=== PATIENT | female | born 1990 | race Caucasian/White ===

== ENCOUNTER 2019-06-14 14:23 | Emergency (ER) | payer OTHER ==
[2019-06-14 14:30] VITALS: BP 114/52; PULSE 82; TEMP 98.2; BMI 26.5
--- NOTE | 2019-06-14 15:03 | PDOC ---
History of Present Illness - General Chief Complaint: Injury Stated Complaint: RT HAND INJURY Time Seen by Provider: 06/14/19 14:32 History Source: Patient Exam Limitations: No Limitations Past History - Travel Traveled outside of the country in the last 30 days: No Close contact w/someone who was outside of country & ill: No - Past Medical History Allergies/Adverse Reactions: Allergies Allergy/AdvReac Type Severity Reaction Status Date / Time No Known Allergies Allergy Verified 06/14/19 14:27 Home Medications: Ambulatory Orders Cephalexin Monohydrate [Keflex -] 500 mg PO BID #14 capsule 06/14/19 - Psycho Social/Smoking Cessation Hx Smoking History: Never smoked Information on smoking cessation initiated: No Hx Alcohol Use: No Drug/Substance Use Hx: No Review of Systems - Review of Systems Able to Perform ROS?: Yes Comments:: 06/14/19 14:54 CONSTITUTIONAL: Absent: fever, chills, diaphoresis, generalized weakness, malaise, loss of appetite HEENT: Absent: rhinorrhea, nasal congestion, throat pain, throat swelling, difficulty swallowing, mouth swelling, ear pain, eye pain, visual Changes MUSCULOSKELETAL: Absent: myalgia, arthralgia, joint swelling SKIN: Present: R 4th nail injury Absent: rash, itching, pallor NEUROLOGIC: Absent: headache, focal weakness or paresthesias, dizziness, unsteady gait, seizure, mental status changes, bladder or bowel incontinence PSYCHIATRIC: Absent: anxiety, depression, suicidal or homicidal ideation, hallucinations. Is the patient limited Divehi proficient: No *Physical Exam - Vital Signs Last Vital Signs Temp Pulse Resp BP Pulse Ox 98.2 F 82 18 114/52 L 98 06/14/19 14:27 06/14/19 14:27 06/14/19 14:27 06/14/19 14:27 06/14/19 14:27 - Physical Exam 06/14/19 14:54 GENERAL: The patient is awake, alert, and fully oriented, in no acute distress. HEAD: Normal with no signs of trauma. EYES: Pupils equal, round and reactive to light, extraocular movements intact, sclera anicteric, conjunctiva clear. EXTREMITIES: Normal range of motion, no edema. NEUROLOGICAL: Normal speech, normal gait. PSYCH: Normal mood, normal affect. SKIN: The lateral aspect of the 4th ring finger nail is lifted from the bed. No bleeding present. Acrylic nail intact. Warm, Dry, normal turgor, no rashes or lesions noted. Medical Decision Making - Medical Decision Making 06/14/19 15:48 The patient is a 29-year-old female no past medical history who presents to the ER today with left fourth nail pain. She states that she jammed her fourth finger against her friend's face and the nail bed including the acrylic aspect of the nail came out of place at 5 am this morning. She went to her nail stylist this afternoon to try and fix it however she was instructed that she needed to come to the ER. Denies numbness and tingling weakness effect extremity. Patient is right-hand dominant. A/P: Nailbed avulsion On exam the lateral aspect of the right fourth nail is avulsed. No nailbed lacerations noted underneath the acrylic nail. Digital block applied. Wound was cleaned under high flow normal saline and cleansed with Betadine. The acrylic nail was then folded back under the nail bed opening and the sides were glued in place. Gauze placed around the finger to prevent re-avulsion. Patient started on Keflex given that this happened at 5 AM this morning. Instructed to return in 2 days for wound check. Discharge home I discussed the physical exam findings, ancillary test results and final diagnoses with the patient. I answered all of the patient's questions. The patient was satisfied with the care received and felt comfortable with the discharge plan and treatment plan. The Patient agrees to follow up with the primary care physician/specialist within 24-72 hours. Return precautions were given. Discharge - Discharge Information Problems reviewed: Yes Clinical Impression/Diagnosis: Avulsion of nail bed Condition: Stable Disposition: HOME - Admission No - Additional Discharge Information Prescriptions: Cephalexin Monohydrate [Keflex -] 500 mg PO BID #14 capsule - Follow up/Referral Referrals: Tanner Wang MD [Staff Physician] - - Patient Discharge Instructions Patient Printed Discharge Instructions: DI for Nail Bed Injury Additional Instructions: You were seen for your nailbed injury today. We were able to put the nail back into the nailbed. Your nail was the glued in place. Avoid changing the acrylic until the nail has grown out. Avoid bumping or banging the nail to avoid re-avulsion. Do not use hand acoustics teacher. Wash the hands gently with soap and water and pat dry. Do not rub the nail as you may risk popping it out from under the nail bed again. Please return in 2 days for wound check. Please take the Keflex twice a day for 1 week to prevent infection. Return to the ER sooner if you have fever, swelling to the finger, if you are unable to move your finger, or if you have any changes in your symptoms. - Post Discharge Activity Work/Back to School Note: Back to Work
== END 2019-06-14 15:47 | disposition home or self-care (01) ==
LOC: JERFT 14:23
PROC: 0HQQXZZ Repair Finger Nail, External Approach (ICD-10-PCS; principal; 2019-06-14)
DX: S61.304A Unspecified open wound of right ring finger with damage to nail, initial encounter (principal); W51.XXXA Accidental striking against or bumped into by another person, initial encounter; Y93.89 Activity, other specified; Y92.89 Other specified places as the place of occurrence of the external cause; Y99.8 Other external cause status
CPT/HCPCS: 11760; 99283-25

== ENCOUNTER 2021-01-08 22:28 | Emergency (ER) | payer OTHER ==
[2021-01-08 22:34] VITALS: BP 105/67; PULSE 72; TEMP 98.4; BMI 27.4
[2021-01-09] MEDS ORDERED: ACETAMINOPHEN 325 MG TABLET (FP) PO ONE (00:40)
[2021-01-09] MEDS ORDERED: LACTATED RINGERS SOLUTION 1000 ML INFUS.BAG IV ONE (00:40)
[2021-01-09] MEDS ORDERED: ONDANSETRON 4 MG/2 ML VIAL IVPUSH ONE ×2 (00:40→01:22)
[2021-01-09 00:48] LABS: PH,URINE 5.5 (5.0-8.0); URINE APPEARANCE CLEAR; URINE BILIRUBIN NEGATIVE (NEGATIVE); URINE COLOR YELLOW; URINE GLUCOSE (UA) NEGATIVE (NEGATIVE); URINE KETONE NEGATIVE (NEGATIVE); URINE LEUK ESTERASE NEGATIVE (NEGATIVE); URINE NITRITE NEGATIVE (NEGATIVE); URINE PROTEIN NEGATIVE (NEGATIVE); URINE UROBILINOGEN 0.2 mg/dL (0.2-1.0)
[2021-01-09] MEDS ORDERED: PYRIDOXINE HCL (B-6) 100 MG TABLET PO ONE (01:01)
[2021-01-09] MEDS ORDERED: ONDANSETRON 4 MG/2 ML VIAL ONE (01:27)
[2021-01-09] MEDS ORDERED: ACETAMINOPHEN 325 MG TABLET (FP) ONE (01:27)
[2021-01-09 01:57] LABS: BASO % 0.8 % (0-2.0); EOS % 0.9 % (0-4.5); HEMATOCRIT 39.1 % (32.4-45.2); HEMOGLOBIN 13.6 GM/dL (10.7-15.3); LYMPH % 21.6 % (8-40); MCH 31.7 pg (25.7-33.7); MCHC 34.7 g/dl (32.0-36.0); MEAN CELL VOLUME 91.4 fl (80-96); MEAN PLT VOLUME 8.8 fl (7.5-11.1); MONO % 7.6 % (3.8-10.2); NEUT % 69.1 % (42.8-82.8); PLATELET COUNT 287 10^3/uL (134-434); RBC 4.28 M/mm3 (3.60-5.2); RDW 12.2 % (11.6-15.6); WHITE BLOOD COUNT 9.5 K/mm3 (4.0-10.0)
[2021-01-09 02:49] LABS: ALBUMIN 3.7 g/dl (3.4-5.0); BLOOD UREA NITROGEN 11.5 mg/dL (7-18)
[2021-01-09 02:52] LABS: CREATININE 0.6 mg/dL (0.55-1.3)
[2021-01-09 02:54] LABS: BILIRUBIN,TOTAL 0.4 mg/dL (0.2-1); TOT PROT 7.1 g/dl (6.4-8.2)
[2021-01-09 03:14] LABS: CALCIUM 8.6 mg/dL (8.5-10.1)
== END 2021-01-09 03:36 | disposition home or self-care (01) ==
LOC: JER 22:28
PROC: 3E033NZ Introduction of Analgesics, Hypnotics, Sedatives into Peripheral Vein, Percutaneous Approach (ICD-10-PCS; principal; 2021-01-09)
PROC: 3E033GC Introduction of Other Therapeutic Substance into Peripheral Vein, Percutaneous Approach (ICD-10-PCS; 2021-01-09)
DX: O21.0 Mild hyperemesis gravidarum (principal); Z3A.00 Weeks of gestation of pregnancy not specified
CPT/HCPCS: 36415; 80053; 81003; 84702; 84703; 85025; 87086; 99284-25; C9803; U0003; U0005